=== PATIENT | female | born 1980 | race Caucasian/White ===

== ENCOUNTER 2016-10-11 18:02 | Emergency (ER) | payer OTHER ==
[2016-10-11 18:08] VITALS: BP 141/74
--- NOTE | 2016-10-11 18:15 | UC ---
UC Dental HPI - HPI Summary HPI Summary: 36 YEAR OLD FEMALE PRESENTS WITH COMPLAINS OF RIGHT UPPER DENTAL ABSCESS. - History of Current Complaint Chief Complaint: UCDentalProblem Stated Complaint: DENTAL PAIN Time Seen by Provider: 10/11/16 18:13 Hx Last Menstrual Period: 08/17/16 - Allergies/Home Medications Allergies/Adverse Reactions: Allergies Allergy/AdvReac Type Severity Reaction Status Date / Time Sulfa Drugs Allergy Severe Hives/Diff. Verified 10/11/16 18:08 Breathing/I tching PMH/Surg Hx/FS Hx/Imm Hx - Surgical History Surgical History: Yes Surgery Procedure, Year, and Place: X2, ATTEMPTED CARDIAC ABLATION - Social History Alcohol Use: Occasionally Substance Use Type: None Smoking Status (MU): Light Every Day Tobacco Smoker Type: Cigarettes Amount Used/How Often: 2-3 CIG/DAY Review of Systems Constitutional: Negative Skin: Negative Eyes: Negative ENT: Dental Pain Respiratory: Negative Cardiovascular: Negative Gastrointestinal: Negative Genitourinary: Negative Motor: Negative Neurovascular: Negative Musculoskeletal: Negative Neurological: Negative Psychological: Negative All Other Systems Reviewed And Are Negative: Yes Physical Exam Triage Information Reviewed: Yes Vital Signs: Initial Vital Signs Temp 37.2 C 10/11/16 18:04 Pulse 86 10/11/16 18:04 Resp 16 10/11/16 18:04 BP 141/74 10/11/16 18:04 Pulse Ox 100 10/11/16 18:04 Eye Exam: Normal ENT Exam: Normal Dental: Positive: Abscess @ - RIGHT UPPER DENTAL ABSCESS Neck exam: Normal Neck: Positive: 1 Respiratory Exam: Normal Cardiovascular Exam: Normal Abdominal Exam: Normal Musculoskeletal Exam: Normal Neurological Exam: Normal Psychological Exam: Normal Skin Exam: Normal Dental Complaint Course/Dx - Differential Dx/Diagnosis Provider Diagnoses: RIGHT UPPER DENTAL ABSCESS Discharge - Discharge Plan Condition: Stable Disposition: HOME Prescriptions: Amoxicillin/Clavulanate TAB* [Augmentin TAB 875*] 875 mg PO BID #20 tab Chlorhexidine MW 0.12% 473ML* [Peridex Mouth Wash 0.12%*] 15 ml MT TID PC #30 btl Naproxen [Naprosyn 500 mg] 500 mg PO BID #30 tab Patient Education Materials: Toothache (ED) Referrals: No Primary Care Phys,NOPCP [Medical Doctor] -
== END 2016-10-11 18:19 | disposition home or self-care (01) ==
LOC: UCEAST 18:02
DX: K04.7 Periapical abscess without sinus (principal); Z88.2 Allergy status to sulfonamides; F17.210 Nicotine dependence, cigarettes, uncomplicated
CPT/HCPCS: 99212; G0463

== ENCOUNTER 2017-02-07 01:26 | Emergency (ER) | payer OTHER ==
[2017-02-07 03:29] LABS: Urine Bilirubin Negative (Negative); Urine Glucose Negative (Negative); Urine Nitrite Negative (Negative)
[2017-02-07 04:37] LABS: Hematocrit 38 % (35-47); Hemoglobin 12.8 g/dl (12.0-16.0); Mean Corpuscular HGB Conc 34 g/dl (31-36); Mean Corpuscular Hemoglobin 31 pg (27-31); Mean Corpuscular Volume 93 fL (80-97); Mean Platelet Volume 8 um3 (7.4-10.4); Red Blood Count 4.07 10^6/ul (4.0-5.4); Red Cell Distribution Width 13 % (10.5-15); White Blood Count 9.1 10^3/ul (3.5-10.8)
[2017-02-07 04:57] LABS: ALT 9 U/L (7-52); AST 14 U/L (13-39); Albumin 4.4 g/dL (3.2-5.2); Alkaline Phosphatase 46 U/L (34-104); Anion Gap 6 mmol/L (2-11); BUN/Creatinine Ratio 17.4 (8-20); Blood Urea Nitrogen 15 mg/dL (6-24); CO2 Carbon Dioxide 25 mmol/L (22-32); Chloride 104 mmol/L (101-111); EGFR Non-African American 74.7 (>60); Globulin 2.7 g/dL (2-4); Glucose 96 mg/dL (70-100); Magnesium 1.9 mg/dL (1.9-2.7); Potassium 3.8 mmol/L (3.5-5.0); Sodium 135 mmol/L (133-145); Total Protein 7.1 g/dL (6.4-8.9)
[2017-02-07 04:59] LABS: Troponin I 0.01 ng/mL (<0.04)
--- NOTE | 2017-02-07 06:38 | ED ---
Vasiliy Pelaez Nikita, scribed for Andrea Denny on 02/07/17 at 0319 . Complex/Multi-Sys Presentation - HPI Summary HPI Summary: This patient is a 36 year old F presenting to ED with multiple symptoms since last night. The CC is described as discomfort and strange. The patient rates the pain 3/10 in severity. Symptoms aggravated by nothing. Symptoms alleviated by nothing. Patient reports tingling in bilateral LE and UE, R-sided neck pain, pain in inner thighs and knees bilaterally, dull R-sided CP (intermittent), cough and sneezing (alleviated since onset), SOB, L-sided LAY, and nausea (0000- 0200, intermittent). Pt has an IUD. - History Of Current Complaint Chief Complaint: EDGeneral Time Seen by Provider: 02/07/17 02:53 Hx Obtained From: Patient Onset/Duration: Sudden Onset, Lasting Hours, Still Present Timing: Constant, Hours Severity Currently: Mild Severity Initially: Mild Aggravating Factor(s): nothing Alleviating Factor(s): nothing Associated Signs And Symptoms: Positive: Other - Patient reports tingling in bilateral LE and UE, R-sided neck pain, pain in inner thighs and knees bilaterally, dull R-sided CP (intermittent), cough and sneezing (alleviated since onset), SOB, L-sided LAY, and nausea ([id number], intermittent). - Allergies/Home Medications Allergies/Adverse Reactions: Allergies Allergy/AdvReac Type Severity Reaction Status Date / Time Sulfa Drugs Allergy Severe Hives/Diff. Verified 10/11/16 18:08 Breathing/I tching PMH/Surg Hx/FS Hx/Imm Hx Endocrine/Hematology History: Denies: Hx Diabetes, Hx Thyroid Disease Cardiovascular History: Reports: Other Cardiovascular Problems/Disorders - SVT Denies: Hx Hypertension Respiratory History: Reports: Hx Asthma Denies: Hx Chronic Obstructive Pulmonary Disease (COPD) GI History: Denies: Hx Ulcer - Surgical History Surgery Procedure, Year, and Place: X2, ATTEMPTED CARDIAC ABLATION Infectious Disease History: No Infectious Disease History: Denies: Hx Hepatitis, Hx Human Immunodeficiency Virus (HIV), Traveled Outside the [place] in Last 30 Days - Family History Known Family History: Positive: Cardiac Disease, Hypertension, Diabetes - Social History Alcohol Use: Occasionally Substance Use Type: Reports: None Hx Tobacco Use: Yes Smoking Status (MU): Light Every Day Tobacco Smoker Type: Cigarettes Amount Used/How Often: 2-3 CIG/DAY Review of Systems Positive: Other - sneezing (alleviated since onset) Positive: Chest Pain - dull R-sided CP (intermittent) Positive: Shortness Of Breath, Cough - alleviated since onset Positive: Nausea - [id number], intermittent Positive: Other - R-sided neck pain, pain in inner thighs and knees bilaterally Neurological: Other - tingling in bilateral LE and UE Positive: Headache - L-sided All Other Systems Reviewed And Are Negative: Yes Physical Exam Triage Information Reviewed: Yes Vital Signs On Initial Exam: Initial Vitals Temp Pulse Resp BP Pulse Ox 98.6 F 50 18 110/64 98 02/07/17 01:34 02/07/17 01:34 02/07/17 01:34 02/07/17 01:34 02/07/17 01:34 Vital Signs Reviewed: Yes Appearance: Positive: Well-Appearing, No Pain Distress Skin: Positive: Warm, Skin Color Reflects Adequate Perfusion, Dry Head/Face: Positive: Normal Head/Face Inspection Eyes: Positive: EOMI, DEZ ENT: Positive: Normal ENT inspection Neck: Positive: Supple, Nontender Respiratory/Lung Sounds: Positive: Clear to Auscultation, Breath Sounds Present Cardiovascular: Positive: RRR, Pulses are Symmetrical in both Upper and Lower Extremities Abdomen Description: Positive: Nontender, Soft Bowel Sounds: Positive: Present Musculoskeletal: Positive: Normal, Strength/ROM Intact Neurological: Positive: Normal, Sensory/Motor Intact, Alert, Oriented to Person Place, Time Diagnostics - Vital Signs Vital Signs Temp Pulse Resp BP Pulse Ox 02/07/17 01:34 98.6 F 50 18 110/64 98 - Laboratory Lab Results: Lab Results 02/07/17 02/07/17 02/07/17 Range/Units 03:15 04:25 04:25 WBC 9.1 (3.5-10.8) 10^3/ul RBC 4.07 (4.0-5.4) 10^6/ul Hgb 12.8 (12.0-16.0) g/dl Hct 38 (35-47) % MCV 93 (80-97) fL MCH 31 (27-31) pg MCHC 34 (31-36) g/dl RDW 13 (10.5-15) % Plt Count 218 (150-450) 10^3/ul MPV 8 (7.4-10.4) um3 Neut % (Auto) 55.0 (38-83) % Lymph % (Auto) 33.7 (25-47) % Jasper % (Auto) 7.3 (1-9) % Eos % (Auto) 3.0 (0-6) % Baso % (Auto) 1.0 (0-2) % Absolute Neuts (auto) 5.0 (1.5-7.7) 10^3/ul Absolute Lymphs (auto) 3.1 (1.0-4.8) 10^3/ul Absolute Monos (auto) 0.7 (0-0.8) 10^3/ul Absolute Eos (auto) 0.3 (0-0.6) 10^3/ul Absolute Basos (auto) 0.1 (0-0.2) 10^3/ul Absolute Nucleated RBC 0 10^3/ul Nucleated RBC % 0 D-Dimer, Quantitative (Less Than 230) ng/mL Sodium 135 (133-145) mmol/L Potassium 3.8 (3.5-5.0) mmol/L Chloride 104 (101-111) mmol/L Carbon Dioxide 25 (22-32) mmol/L Anion Gap 6 (2-11) mmol/L BUN 15 (6-24) mg/dL Creatinine 0.86 (0.51-0.95) mg/dL Est GFR ( Amer) 96.0 (>60) Est GFR (Non-Af Amer) 74.7 (>60) BUN/Creatinine Ratio 17.4 (8-20) Glucose 96 (70-100) mg/dL Calcium 9.0 (8.6-10.3) mg/dL Magnesium 1.9 (1.9-2.7) mg/dL Total Bilirubin 0.50 (0.2-1.0) mg/dL AST 14 (13-39) U/L ALT 9 (7-52) U/L Alkaline Phosphatase 46 (34-104) U/L Troponin I 0.01 (<0.04) ng/mL Total Protein 7.1 (6.4-8.9) g/dL Albumin 4.4 (3.2-5.2) g/dL Globulin 2.7 (2-4) g/dL Albumin/Globulin Ratio 1.6 (1-3) Beta HCG, Quant < 0.60 mIU/mL Urine Color Yellow Urine Appearance Cloudy Urine pH 5.0 (5-9) Ur Specific [place] 1.017 (1.010-1.030) Urine Protein Negative (Negative) Urine Ketones Negative (Negative) Urine Blood Negative (Negative) Urine Nitrate Negative (Negative) Urine Bilirubin Negative (Negative) Urine Urobilinogen Negative (Negative) Ur Leukocyte Esterase Negative (Negative) Urine Glucose Negative (Negative) 02/07/17 Range/Units 04:25 WBC (3.5-10.8) 10^3/ul RBC (4.0-5.4) 10^6/ul Hgb (12.0-16.0) g/dl Hct (35-47) % MCV (80-97) fL MCH (27-31) pg MCHC (31-36) g/dl RDW (10.5-15) % Plt Count (150-450) 10^3/ul MPV (7.4-10.4) um3 Neut % (Auto) (38-83) % Lymph % (Auto) (25-47) % Jasper % (Auto) (1-9) % Eos % (Auto) (0-6) % Baso % (Auto) (0-2) % Absolute Neuts (auto) (1.5-7.7) 10^3/ul Absolute Lymphs (auto) (1.0-4.8) 10^3/ul Absolute Monos (auto) (0-0.8) 10^3/ul Absolute Eos (auto) (0-0.6) 10^3/ul Absolute Basos (auto) (0-0.2) 10^3/ul Absolute Nucleated RBC 10^3/ul Nucleated RBC % D-Dimer, Quantitative < 200 (Less Than 230) ng/mL Sodium (133-145) mmol/L Potassium (3.5-5.0) mmol/L Chloride (101-111) mmol/L Carbon Dioxide (22-32) mmol/L Anion Gap (2-11) mmol/L BUN (6-24) mg/dL Creatinine (0.51-0.95) mg/dL Est GFR ( Amer) (>60) Est GFR (Non-Af Amer) (>60) BUN/Creatinine Ratio (8-20) Glucose (70-100) mg/dL Calcium (8.6-10.3) mg/dL Magnesium (1.9-2.7) mg/dL Total Bilirubin (0.2-1.0) mg/dL AST (13-39) U/L ALT (7-52) U/L Alkaline Phosphatase (34-104) U/L Troponin I (<0.04) ng/mL Total Protein (6.4-8.9) g/dL Albumin (3.2-5.2) g/dL Globulin (2-4) g/dL Albumin/Globulin Ratio (1-3) Beta HCG, Quant mIU/mL Urine Color Urine Appearance Urine pH (5-9) Ur Specific [place] (1.010-1.030) Urine Protein (Negative) Urine Ketones (Negative) Urine Blood (Negative) Urine Nitrate (Negative) Urine Bilirubin (Negative) Urine Urobilinogen (Negative) Ur Leukocyte Esterase (Negative) Urine Glucose (Negative) Result Diagrams: 02/07/17 04:25 02/07/17 04:25 Lab Statement: Any lab studies that have been ordered have been reviewed, and results considered in the medical decision making process. - Radiology CXR Radiology Interpretation Completed By: ED Physician - negative - EKG 0317 Cardiac Rate: Bradycardia EKG Rhythm: Sinus Bradycardia - 45 bpm EKG Interpretation: No acute changes Complex Multi-Symp Course/Dx Assessment/Plan: This patient is a 36 year old F presenting to ED with multiple symptoms since last night. Patient reports tingling in bilateral LE and UE, R- sided neck pain, pain in inner thighs and knees bilaterally, dull R-sided CP ( intermittent), cough and sneezing (alleviated since onset), SOB, L-sided LAY, and nausea ([id number], intermittent). EKG reveals sinus bradycardia at 45 bpm and no acute changes. CXR shows negative. Bloodwork/UA obtained. Pt will be discharged with instructions to follow up with PCP. pt refused us of legs and said she will come in the evening - Diagnoses Differential Diagnoses/HQI/PQRI: Cardiac Ischemia, Urinary Tract Infection - pe/ pneumonia/anxeity reaction, Other - dyspnea Provider Diagnoses: Dyspnea Discharge - Discharge Plan Condition: Stable Disposition: HOME Patient Education Materials: Dyspnea (ED) Referrals: Meredith Buck MD [Primary Care Provider] - 3 Days The documentation as recorded by the Vasiliy hernandez Nikita accurately reflects the service I personally performed and the decisions made by Eduin moraes Emmanuel.
[2017-02-07 07:36] VITALS: BP 107/67
--- NOTE | 2017-02-07 08:11 | RAD ---
INDICATION: Chest pain and shortness of breath COMPARISON: Similar chest x-ray dated April 12, 2014 TECHNIQUE: PA and lateral views of the chest were obtained. FINDINGS: The heart and mediastinum are normal in size and contour. The lungs are grossly clear. There is no evidence of large pleural effusion. Visualized bones are normal for the patient's age. There is no radiographic evidence of free air beneath the diaphragm IMPRESSION: No radiographic evidence of acute cardiopulmonary disease.
== END 2017-02-07 06:20 | disposition home or self-care (01) ==
LOC: ED 01:26
DX: R06.00 Dyspnea, unspecified (principal); F17.210 Nicotine dependence, cigarettes, uncomplicated; Z97.5 Presence of (intrauterine) contraceptive device; I47.1 Supraventricular tachycardia; J45.909 Unspecified asthma, uncomplicated; R05 Cough; R06.7 Sneezing; R51 Headache; R11.0 Nausea
CPT/HCPCS: 36415; 71020; 80053; 81003; 83735; 84484; 84702; 85025; 85379; 93005; 99283

== ENCOUNTER 2017-07-05 15:56 | Emergency (ER) | payer OTHER ==
[2017-07-05 16:03] VITALS: BP 112/68
[2017-07-05] MEDS ORDERED: Ibuprofen TAB* 600 MG PO ONE (16:31)
[2017-07-05] MEDS ORDERED: HYDROcodone/ACETAMIN 5-325 MG* 1 TAB PO ONE (16:31)
--- NOTE | 2017-07-05 17:22 | RAD ---
Indication: Neck pain. CT of the cervical spine was obtained in the axial plane. Sagittal and coronal reconstructed images were obtained. The skull base demonstrates no fracture. Mastoid air cells are well aerated. The C1 ring is intact with no evidence of fracture. The vertebral bodies appear normal in height and alignment. There is straightening of the normal lordosis. At C2-C3, C3-C4, C4-C5, C5-C6, C6-C7 and C7-T1 the disc space appears unremarkable. The lung apices are unremarkable. Spinal canal appears to be intact. IMPRESSION: No fracture of the cervical spine is noted.
--- NOTE | 2017-07-05 17:24 | RAD ---
Indication: Back pain. CT of the thoracic spine was obtained in the axial plane. Sagittal and coronal reconstructed images were obtained. The vertebral bodies appear normal in height. No compression fracture is noted. No evidence of spinal Canal masses are noted. No other bone or joint abnormality is noted. The visualized lung de [place] ve[place] are unremarkable. IMPRESSION: No fracture of the thoracic spine is noted.
--- NOTE | 2017-07-05 18:03 | UC ---
Chicho Pelaez Gabriel, scribed for Joe Haque MD on 07/05/17 at 1622 . Back Pain HPI - HPI Summary HPI Summary: This patient is a 37 year old F [place] [facility] [place] a chief complaint of neck and back pain that began at 0930 this morning while she was walking into work. The patient rates the pain 10/10 in severity and states it is located in the middle of her back, paraspinally. Symptoms aggravated by movement. Symptoms alleviated by lying. Patient reports neck stiffness, trouble walking secondary to pain, and numbness in UEs. Patient denies lower back pain, SOB, CP, fever, chills, and incontinence. She states her back has been sore for the past two days but got worse today. She attempted to take muscle relaxers given to her for neck pain and a LAY 10 days ago. She states she had a similar pain years ago that resolved. - History of Current Complaint Chief Complaint: UCBackPain Stated Complaint: BACK PAIN Hx Obtained From: Patient Hx Last Menstrual Period: 05/12/17 Onset/Duration: Lasting Hours, Still Present Timing: Constant Severity Initially: Severe Severity Currently: Severe Pain Intensity: 10 Pain Scale Used: 0-10 Numeric Back Pain: Is Discrete @ - mid Aggravating Factor(s): Movement Alleviating Factor(s): Other - lying Associated Signs And Symptoms: Positive: Negative - lower back pain, SOB, CP, fever, chills, incontinence,, Other - neck stiffness, trouble walking secondary to pain, numbness in UEs, - Allergies/Home Medications Allergies/Adverse Reactions: Allergies Allergy/AdvReac Type Severity Reaction Status Date / Time MS Sulfa Drugs [Sulfa Drugs] Allergy Severe Hives/Diff. Verified 07/05/17 16:02 Breathing/I tching Home Medications: Home Medications Methocarbamol TAB* [Robaxin 500 MG TAB*] 500 mg PO PRN 07/05/17 [History] PMH/Surg Hx/FS Hx/Imm Hx Respiratory History: Asthma - Surgical History Surgical History: Yes Surgery Procedure, Year, and Place: X2, ATTEMPTED CARDIAC ABLATION - Family History Known Family History: Positive: Cardiac Disease, Hypertension, Diabetes - Social History Lives: With Family Alcohol Use: Occasionally Substance Use Type: None Smoking Status (MU): Former Smoker Type: Cigarettes Amount Used/How Often: 2-3 CIG/DAY Review of Systems Constitutional: Negative - fever Musculoskeletal: Other: - mid back pain, neck stiffness, trouble walking secondary to pain Neurological: Numbness - in arms All Other Systems Reviewed And Are Negative: Yes Physical Exam - Summary Physical Exam Summary: General: well-appearing, no pain distress Skin: warm, color reflects adequate perfusion, dry Head: normal Eyes: EOMI, DEZ ENT: normal Neck: supple, nontender Respiratory: CTA, breath sounds present Cardiovascular: RRR Abdomen: soft, nontender Bowel: present, negative incontinence Musculoskeletal: normal, strength/ROM intact, Arms are at full strength Neurological: normal, sensory/motor intact, A&O x3 Psychological: affect/mood appropriate Triage Information Reviewed: Yes Vital Signs: Initial Vital Signs Temp 98.6 F 07/05/17 15:57 Pulse 60 07/05/17 15:57 Resp 18 07/05/17 15:57 BP 112/68 07/05/17 15:57 Pulse Ox 99 07/05/17 15:57 Vital Signs Reviewed: Yes Diagnostics - Radiology CT C-spine Radiology Interpretation Completed By: Radiologist - No fracture of the cervical spine is noted. Dr. Haque has reviewed this report. CT L-spine Radiology Interpretation Completed By: Radiologist - No fracture of the thoracic spine is noted. Dr. Haque has reviewed this report. Back Pain Course/Dx - Course Course Of Treatment: DISCUSSED RESULTS WITH PATIENT. NO NEUROLOGIC DEFICIT. IMPROVED IN CLINIC. F/U PMD; RE EVAL SOONER IF WORSE. - Differential Dx/Diagnosis Provider Diagnoses: THORACIC AND CERVICAL PAIN Discharge - Sign-Out/Discharge Documenting (check all that apply): Discharge/Admit/Transfer - Discharge Plan Condition: Stable Disposition: HOME Prescriptions: Cyclobenzaprine TAB* [Flexeril 10 MG TAB*] 10 mg PO TID PRN #15 tab MDD 3 PRN Reason: Pain HYDROcodone/ACETAMIN 5-325 MG* [Denio 5-325 TAB*] 1 tab PO Q4H PRN #20 tab MDD 6 PRN Reason: Pain Ibuprofen TAB* [Motrin TAB* 600 MG] 600 mg PO Q6H PRN #20 tab PRN Reason: Pain Patient Education Materials: Back Pain (ED), Acute Neck Pain (ED) Forms: *Work Release Referrals: Meredith Buck MD [Primary Care Provider] - Additional Instructions: FOLLOW UP WITH YOUR DOCTOR. GET RECHECKED FOR ANY WORSENING OF YOUR CONDITION OR QUESTIONS OR CONCERNS. - Billing Disposition and Condition Condition: STABLE Disposition: HOME The documentation as recorded by the Chicho hernandez Gabriel accurately reflects the service I personally performed and the decisions made by me, Joe Haque MD.
== END 2017-07-05 18:10 | disposition home or self-care (01) ==
LOC: UCEAST 15:56
DX: M54.2 Cervicalgia (principal); M54.6 Pain in thoracic spine; Z87.891 Personal history of nicotine dependence; Z88.2 Allergy status to sulfonamides
CPT/HCPCS: 72125; 72128; 99212; A9270-GY; G0463

== ENCOUNTER 2019-04-10 16:02 | Emergency (ER) | payer OTHER ==
[2019-04-10 16:35] VITALS: BP 108/67
--- NOTE | 2019-04-10 17:23 | UC ---
Lower Extremity/Ankle HPI - HPI Summary HPI Summary: 38-year-old woman comes in with chief complaint of sudden onset of left calf pain. Started a little more than hour ago. No known trauma. Pain is in the upper calf. Has no loss of sensation or decrease in strength. Patient is not a smoker. She has no history is of DVTs. No family history of DVTs. She has a Mirena but is not on oral estrogens. No recent long distance travel. She is a former smoker. Pain is worse with palpation and ambulation. Patient's primary concern is whether or not she has a DVT. No chest pain. No shortness of breath. - History of Current Complaint Chief Complaint: UCLowerExtremity Stated Complaint: GENERAL LEG PAIN Time Seen by Provider: 04/10/19 16:52 Hx Last Menstrual Period: iud Pain Intensity: 7 - Allergies/Home Medications Allergies/Adverse Reactions: Allergies Allergy/AdvReac Type Severity Reaction Status Date / Time Sulfa (Sulfonamide Allergy Hives/Diff. Verified 04/10/19 16:35 Antibiotics) Breathing/I tching Home Medications: Home Medications NK [No Home Medications Reported] 04/10/19 [History Confirmed 04/10/19] PMH/Surg Hx/FS Hx/Imm Hx Previously Healthy: Yes - Surgical History Surgical History: Yes Surgery Procedure, Year, and Place: X2, ATTEMPTED CARDIAC ABLATION - Family History Known Family History: Positive: Cardiac Disease, Hypertension, Diabetes - Social History Alcohol Use: Occasionally Substance Use Type: None Smoking Status (MU): Former Smoker Type: Cigarettes Amount Used/How Often: 2-3 CIG/DAY Review of Systems All Other Systems Reviewed And Are Negative: Yes Constitutional: Positive: Negative Skin: Positive: Negative Eyes: Positive: Negative ENT: Positive: Negative Respiratory: Positive: Negative Cardiovascular: Positive: Negative Gastrointestinal: Positive: Negative Motor: Positive: Negative Neurovascular: Positive: Negative Musculoskeletal: Positive: Other: - SEE HPI Neurological: Positive: Negative Psychological: Positive: Negative Is Patient Immunocompromised?: No Physical Exam Triage Information Reviewed: Yes Appearance: Well-Appearing, No Pain Distress, Well-Nourished Vital Signs: Initial Vital Signs Temp 96.6 F 04/10/19 16:31 Pulse 57 04/10/19 16:31 Resp 18 04/10/19 16:31 BP 108/67 04/10/19 16:31 Pulse Ox 100 04/10/19 16:31 Vital Signs Reviewed: Yes Eye Exam: Normal Eyes: Positive: Conjunctiva Clear Neck: Positive: Supple Respiratory: Positive: Lungs clear, Normal breath sounds, No respiratory distress Cardiovascular: Positive: RRR Musculoskeletal: Positive: Other: - Patient has tenderness to palpation the left calf. No popliteal tenderness knee is nonswollen and nontender full range of motion. Patient has full range of motion full-strength in the knee and the ankle joint. Neurological: Positive: Alert, Muscle Tone Normal Psychological: Positive: Age Appropriate Behavior Skin Exam: Normal Lower Extremity Course/Dx - Course Course Of Treatment: Center Line Cutter Operator: Tomasz Brock ([id number]) Robotic Welding Operator: CHAO (NUANCE) Report Date: 04/10/2019 18:10:00 Report Status: Final Start of Report Content Patient Name: EMILIANO CONWAY Medical Record#: [id number] Ordering Physician: Joe Haque MD Acct.#: [id number] : Age: 38 Sex: F Location: [facility] Exam Date: 04/10/19 165 ADM Status: REG ER Order Information: VL LOWER EXT VEINS LEFT Accession Number: [id number] CPT: 77444 INDICATION: Calf pain COMPARISON: There are no relevant prior studies available for comparison. TECHNIQUE: Multiple real-time, color flow and Doppler tracings of the left lower extremity were obtained. FINDINGS: The common femoral, femoral, profunda femoral and popliteal veins all demonstrate normal compressibility, augmentation with compression and phasic response with respiration. The posterior tibial and peroneal veins demonstrate normal compressibility and augmentation with compression. IMPRESSION: NO EVIDENCE FOR DEEP VENOUS THROMBOSIS. <Electronically signed by Tomasz Brock MD in OV> 04/10/191805 Dictated By: Tomasz Brock MD Dictated Date/Time: 04/10/191804 Transcribed Date/Time: 04/10/191804 Copy to: CC:Meredith Buck MD; Joe Haque MD Imaging - [facility] Imaging - [facility] Imaging - [facility] [address] [facility] [address] [place], [place] [id number] [place] [id number] [place] [id number] ph [phone] ph ([phone]) ph ([phone]) End of Report Content I discussed the venous Doppler results with the patient. No DVT was found. Plan will be ibuprofen and rest and follow-up with her primary care doctor as needed. If the pain continues or worsens is any swelling or redness patient is to get reevaluated again. I let the patient know that there is potential to have to re-ultrasound if not improved or worsened. - Differential Dx/Diagnosis Provider Diagnosis: Pain of left calf Discharge ED - Sign-Out/Discharge Documenting (check all that apply): Patient Departure All imaging exams completed and their final reports reviewed: Yes - Discharge Plan Condition: Stable Disposition: HOME Patient Education Materials: Deep Vein Thrombosis (ED), Leg Pain (ED) Referrals: Meredith Buck MD [Primary Care Provider] - Additional Instructions: FOLLOW UP WITH YOUR DOCTOR IF NOT COMPLETELY IMPROVED. If the calf pain does not improve or you get any swelling or redness you should get reevaluated. GET REEVALUATED SOONER IF NOT IMPROVED OR WORSE OR ANY QUESTIONS OR CONCERNS. - Billing Disposition and Condition Condition: STABLE Disposition: Home
== END 2019-04-10 18:20 | disposition home or self-care (01) ==
LOC: UCEAST 16:02
DX: M79.605 Pain in left leg (principal); Z88.2 Allergy status to sulfonamides; Z87.891 Personal history of nicotine dependence
CPT/HCPCS: 99211; G0463

== ENCOUNTER 2019-05-29 08:26 | Emergency (ER) | payer OTHER ==
--- OUTSIDE RECORDS SUMMARY | 2019-05-29 08:32 | XMS REPORT | Summary of Care ---
:1980 Author Organization [facility] Address [address] [place] [address] Care Team Providers Name Role Phone Meredith Buck MD Primary Care Provider Reason for Referral MRI/CAT/PET Scan (Routine) Status Reason Specialty Diagnoses / Procedures Referred By Referred To Contact Contact Authorized Diagnoses Hypertrophic cardiomyopathy (HCC) [place], Procedures MR HEART CARDIOMYOPATHY (CHF EVAL) MD Marcial [facility] [place] [id number] Reason for Visit Reason Comments Follow Up Pt presents for 6 month f/u. Encounter Details Date Type Department Care Team Description 04/18/2019 Office Visit Rivera Normangeeemery Burgos, Hypertrophic cardiomyopathy (HCC) (Primary Dx); Cardiology MD Marcial SVT (supraventricular tachycardia) (HCC) [address] [facility] [address] [place], [place] [id number] [place] [address] [phone] Allergies Active Allergy Reactions Severity Noted Date Comments Sulfa Antibiotics Anaphylaxis 11/03/2017 documented as of this encounter (statuses as of 04/18/2019) Medications Medication Sig Dispensed Refills Start Date End Date Status Levonorgestrel by Intrauterine 0 Active (MIRENA, 52 MG,) 20 route. MCG/24HR Intrauterine IUD albuterol HFA Take 2 Puffs by 0 Active (VENTOLIN) 108 (90 inhalation EVERY Base) MCG/ACT FOUR HOURS Inhalation Aero Soln NEEDED. documented as of this encounter (statuses as of 04/18/2019) Active Problems Problem Noted Date Family history of hypertrophic cardiomyopathy 11/03/2017 SVT (supraventricular tachycardia) 11/03/2017 Mild asthma 11/03/2017 documented as of this encounter (statuses as of 04/18/2019) Social History Tobacco Use Types Packs/Day Years Used Date Former Smoker Cigarettes 0.25 20 Smokeless Tobacco: Never Used Alcohol Use Drinks/Week oz/Week Comments Yes About 4-6 drinks per week Sex Assigned at Date Recorded Not on file Job Start Date Occupation Industry Not on file Not on file Not on file Travel History Travel Start Travel End No recent travel history available. documented as of this encounter Last Filed Vital Signs Vital Sign Reading Time Taken Comments Blood Pressure 104/66 04/18/2019 10:11 AM EST Pulse 68 04/18/2019 10:11 AM EST Temperature - - Respiratory Rate - - Oxygen Saturation - - Inhaled Oxygen Concentration - - Weight 85.7 kg (189 lb) 04/18/2019 10:11 AM EST Height 175.3 cm (5' 9") 04/18/2019 10:11 AM EST Body Mass Index 27.91 04/18/2019 10:11 AM EST documented in this encounter Patient Instructions Patient InstructionsMcMarcial Sousa MD - 04/18/2019 10:00 AM EST No new medications today. No exercise restrictions. Get your bloodwork checked today. Schedule a cardiac MRI in [place] sometime in the next month or two. Wear a 24 hour Holter monitor. Follow up with me in 6 months or sooner if needed. documented in this encounter Progress Notes Marcial Burgos MD - 04/18/2019 10:00 AM EST [facility] Patient: Rae Galvez Date of : 1980 Date of Service: 04/18/2019 REFERRING PRACTITIONER: Self-Referred PRIMARY CARE PROVIDER: Meredith Buck Chief Complaint: Chief Complaint Patient presents with Follow Up Pt presents for 6 month f/u. History of Present Illness: We had the pleasure of seeing Rae Galvez today at the [facility]. She is a 39-y.o. female with a family history of hypertrophic cardiomyopathy (mother in her 40s of SCD attributed to HCM). 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 She also has asthma, prior tobacco abuse, and a history of SVT s/p attempted ablation in [place] with failure to induce the rhythm at that time. Ms. Galvez returns to cardiology clinic today for routine f/u. Since her last visit with me in October she was seen by genetics at [facility] and underwent testing. 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 Geneticcounseling was provided to the patient over the phone after her test results were in, and they had recommended that she follow up with me for further evaluation. From a symptom standpoint, she reports feeling "OK." Now that she knows her genetic test results she's more hyper-aware of any symptoms, and she does have some intermittent palpitations at times. When she gets the palpitations they usually last only a few seconds and she denies lightheadedness or syncope. She does sometimes get chest pains that either feel like a tightness or a "twinge." None of her CP sxs are related to exertion and her breathing has been fairly good. She's been doing some regular exercise such as 20 minutes on the treadmill and Cross[employer] and feels pretty good with activity. No exertional lightheadedness. No orthopnea, paroxysmal dyspnea, or lower extremity edema. Patient Active Problem List Diagnosis Family history of hypertrophic cardiomyopathy SVT (supraventricular tachycardia) (HCC) Mild asthma Past Medical History: Diagnosis Date Family history of hypertrophic cardiomyopathy 11/03/2017 Mild asthma 11/03/2017 SVT (supraventricular tachycardia) (HCC) 11/03/2017 History reviewed. No pertinent surgical history. Allergies Allergen Reactions Sulfa Antibiotics Anaphylaxis Current Outpatient Medications Medication Sig albuterol HFA (VENTOLIN) 108 (90 Base) MCG/ACT Inhalation Aero Soln Take 2 Puffs by inhalation EVERY FOUR HOURS NEEDED. Levonorgestrel (MIRENA, 52 MG,) 20 MCG/24HR Intrauterine IUD by Intrauterine route. No current facility-administered medications for this visit. Family History Problem Relation Age of Onset Heart Mother 40 Sudden cardiac attributed to HCM Heart Brother 36 Possible HCM Heart Daughter "Leaky valve" Social History Socioeconomic History Marital status: Single Spouse name: Not on file Number of children: Not on file Years of education: Not on file Highest education level: Not on file Occupational History Not on file Social Needs Financial resource strain: Not on file Food insecurity Worry: Not on file Inability: Not on file Transportation needs Medical: Not on file Non-medical: Not on file Tobacco Use Smoking status: Former Smoker Packs/day: 0.25 Years: 20.00 Pack years: 5.00 Types: Cigarettes Smokeless tobacco: Never Used Substance and Sexual Activity Alcohol use: Yes Comment: About 4-6 drinks per week Drug use: No Sexual activity: Not on file Lifestyle Physical activity Days per week: Not on file Minutes per session: Not on file Stress: Not on file Relationships Social connections Talks on phone: Not on file Gets together: Not on file Attends druze service: Not on file Active member of club or organization: Not on file Attends meetings of clubs or organizations: Not on file Relationship status: Not on file Intimate partner violence Fear of current or ex partner: Not on file Emotionally abused: Not on file Physically abused: Not on file Forced sexual activity: Not on file Other Topics Concern Not on file Social History Narrative Not on file Review of Systems - Negative except as noted in HPI. Physical Exam: Vitals: 04/18/19 1011 BP: 104/66 Pulse: 68 Weight: 189 lb (85.7 kg) Height: 5' 9" (1.753 m) Body mass index is 27.91 kg/m. General: Well nourished, alert 39-y.o. female in NAD HEENT: anicteric, MMM, no E/E OP, conj pink Neck: JVP approx 4-5 cm above RA, no carotid bruits or LAD CV: Regular and stan, normal s1/s2, 1-2/6 KAREN at RUSB similar to prior, with no worsening of murmurwith Valsalva. Pulm: CTA bilaterally without wheezes, rhonchi, or rales. No increased work of breathing. Abd: soft, NT, ND, +BS. No appreciable pulsatile masses or bruits. Ext: no lower extremity edema, no cyanosis, no cords, redness, or warmth, 2+ distal pulses Neuro: no gross focal deficits Skin: no visible lesions Labs: No results found for: NA, K, CL, CO2, GLUCOSE, BUN, CREATININE, CALCIUM, TP, ALBUMIN, AST, ALT, ALK,TBILI, EGFR No results found for: BNP No results found for: CHOL, TRIG, HDL, LDL, LDLHDLRATIO, CHOLHDLRATIO Cardiac Studies: EKG Today (I personally reviewed): Sinus stan in 50s. Otherwise normal EKG. 30 Day Event Monitor 12/14/17: CONCLUSIONS: 1. 30-day Event monitor is within normal limits. 2. No cardiac rhythm explanation for the patient's reported symptomatic events on 11/12/2017. TTE at [facility] 10/21/17: Assessment & Plan: Rae Galvez is a 39-y.o. female with a family history of hypertrophic cardiomyopathy (mother in her 40s of SCD attributed to HCM). 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 She also has asthma, prior tobacco abuse, and a history of SVT s/p attempted ablation in [place] with failure to induce the rhythm at that time. ICD-9-CM ICD-10-CM 1. Hypertrophic cardiomyopathy (HCC) 425.18 I42.2 AMBULATORY 12 LEAD EKG (GLOBAL ) MR HEART CARDIOMYOPATHY (CHF EVAL) COMPREHENSIVE METABOLIC PANEL CBC NO DIFFERENTIAL HOLTER MONITOR 24-48 HOURS CBC NO DIFFERENTIAL COMPREHENSIVE METABOLIC PANEL 2. SVT (supraventricular tachycardia) ([facility]) 427.89 I47.1 1. HCM: Workup to date has not revealed any phenotypic expression of HCM, although we now know that she is positive for a pathogenic gene mutation and her surveillance testing should be more frequent and complete. I had a long discussion with her today regarding the fact that she does have a fairly high likelihood of some gene expression over her lifetime, but that there is variable expression and it may never get to a point where she requires an ICD like her brother. I have ordered a cMRI to look at both her wall thickness as well as to see if she has evidence of LGE. If the MRI looks normal then I'll plan to do yearly echoes and periodic MRIs every few years. I'm checking some basic labs today prior to her MRI and will have the results forwarded to Dr. Buck as well. I've ordered a 24 hour Holter to evaluate for ventricular ectopy/VT. We' ll plan to do one of these yearly. I had a discussion about the fact that her daughters carry a 50% risk of being positive for thegene mutation. They are actually getting genetic testing at [facility] next week and she plans to have them see me in the office for further evaluation after we know the results of their genetic testing. No exercise restrictions at this time. 2. Palpitations/History of SVT/Sinus Bradycardia: No concerning findings on her prior 30 day event monitor and her dyspnea has improved some with doing more exercise. She's noted that her HR does go up appropriately with exercise. No further testing is needed at this time beyond what we're pursuing for the HCM. Most likely her significant sinus stan is due to a high vagal tone. Thank you for allowing me to participate in the care of Rae Galvez. We will plan on f/u in our office in 6 months or sooner prn. If you have any questions or concerns please feel free to call our office at . Marcial Burgos MD, 04/18/2019, 12:13 This note was created using my previous note as a template; changes were made where appropriate, andall information in the current note is up to date to the best of my knowledge.Electronically signed by Marcial Burgos MD at 2019 12:40 PM ESTdocumented in this encounter Plan of Treatment Date Type Specialty Care Team Description 10/17/2019 Office Visit Cardiology Marcial Burgos MD [address] [place] [address] [phone] Name Type Priority Associated Diagnoses Date/Time COMPREHENSIVE METABOLIC Lab Routine Hypertrophic 04/18/2019 10:57 AM PANEL cardiomyopathy (HCC) EST CBC NO DIFFERENTIAL Lab Routine Hypertrophic 04/18/2019 10:57 AM cardiomyopathy (HCC) EST Name Type Priority Associated Diagnoses Order Schedule AMBULATORY 12 LEAD EKG EKG Routine Hypertrophic Ordered: (GLOBAL) cardiomyopathy ([facility]) 04/18/2019 MR HEART CARDIOMYOPATHY Imaging Routine Hypertrophic Expected: (CHF EVAL) cardiomyopathy ([facility]) 04/18/2019 (Approximate), Expires: 04/17/2020 COMPREHENSIVE METABOLIC Lab Routine Hypertrophic Expected: PANEL cardiomyopathy (HCC) 04/18/2019 (Approximate), Expires: 04/18/2020 CBC NO DIFFERENTIAL Lab Routine Hypertrophic Expected: cardiomyopathy ([facility]) 04/18/2019 (Approximate), Expires: 10/15/2019 HOLTER MONITOR 24-48 EKG Routine Hypertrophic Expected: HOURS cardiomyopathy ([facility]) 04/18/2019, Expires: 05/22/2020 Health Maintenance Due Date Last Done Comments PNEUMOCOCCAL 0-64 YRS (1 of 1 - 1986 PPSV23) DTaP/Tdap/Td Vaccines (1 - Tdap) 1991 DEPRESSION SCREENING 1992 HIV SCREENING 1995 PAP SMEAR 2001 INFLUENZA VACCINE (#1) 2018 HEPATITIS A IMMUNIZATION SERIES Aged Out No longer eligible based on patient's age to complete this topic HPV IMMUNIZATION SERIES Aged Out No longer eligible based on patient's age to complete this topic MENINGOCOCCAL VACCINE IMM Aged Out No longer eligible based on patient's age to complete this topic documented as of this encounter Results Not on filedocumented in this encounter Visit Diagnoses Diagnosis Hypertrophic cardiomyopathy (HCC) Other hypertrophic cardiomyopathy SVT (supraventricular tachycardia) (HCC) Other specified cardiac dysrhythmias documented in this encounter Insurance Payer Benefit Plan / Subscriber ID Effective Dates Phone Address Type Group [employer] [place] [facility] xxxxxxxxxx 2013-Present [employer] documented as of this encounter
[2019-05-29 08:40] VITALS: BP 98/65
[2019-05-29] MEDS ORDERED: Ipratropium 0.5MG/2.5ML NEB* 0.5 MG/2.5 ML NEB.SOLN INH ONE (09:07)
[2019-05-29] MEDS ORDERED: Albuterol 2.5 MG/3 ML NEB.SOL* (0.083%) INH ONE (09:07)
--- NOTE | 2019-05-29 09:14 | UC ---
Respiratory Complaint HPI - HPI Summary HPI Summary: The patient is a 39-year-old female who has a workplace exposure to someone currently being isolated pending the results of their Carona test. She has a history of asthma and has had a 2-3 day history of nasal congestion and cough. She has had wheezing. She states that she has been using her rescue inhaler with little relief. She denies any myalgias however she does have a headache. She denies any chest pain. She has felt dyspneic at times. - History of Current Complaint Chief Complaint: UCRespiratory Stated Complaint: CHEST CONGESTION,RUNNY NOSE,ASTHMA EXACERBATION Time Seen by Provider: 05/29/19 08:41 Hx Obtained From: Patient Hx Last Menstrual Period: Mirena Onset/Duration: Gradual Onset, Lasting Days Timing: Constant Severity Initially: Mild Severity Currently: Moderate Pain Intensity: 0 Pain Scale Used: 0-10 Numeric Character: Cough: Productive Aggravating Factors: Exertion, Deep Breaths Associated Signs And Symptoms: Positive: Wheezing, Nasal Congestion Related History: Seasonal Allergies - Allergies/Home Medications Allergies/Adverse Reactions: Allergies Allergy/AdvReac Type Severity Reaction Status Date / Time Sulfa (Sulfonamide Allergy Hives/Diff. Verified 05/29/19 08:40 Antibiotics) Breathing/I tching Home Medications: Home Medications Albuterol 2.5MG/3ML (0.083%)* [Ventolin 2.5 MG/3 ML NEB.BLAIR*] 2.5 mg INH QID PRN #1 neb.blair 05/29/19 [Rx] PMH/Surg Hx/FS Hx/Imm Hx Previously Healthy: Yes Respiratory History: Asthma, Bronchitis - Surgical History Surgical History: Yes Surgery Procedure, Year, and Place: X2, ATTEMPTED CARDIAC ABLATION - Family History Known Family History: Positive: Cardiac Disease, Hypertension, Diabetes, Respiratory Disease - Social History Alcohol Use: Occasionally Substance Use Type: None Smoking Status (MU): Former Smoker Type: Cigarettes Amount Used/How Often: 2-3 CIG/DAY Review of Systems All Other Systems Reviewed And Are Negative: Yes Constitutional: Positive: Negative Skin: Positive: Negative Eyes: Positive: Negative ENT: Positive: Nasal Discharge, Sinus Congestion Respiratory: Positive: Shortness Of Breath - at times, Cough, Other - wheezing Cardiovascular: Positive: Negative Gastrointestinal: Positive: Negative Genitourinary: Positive: Negative Motor: Positive: Negative Neurovascular: Positive: Negative Musculoskeletal: Positive: Negative Neurological/Mental Status: Positive: Negative Psychological: Positive: Negative Physical Exam Triage Information Reviewed: Yes Appearance: Well-Appearing, No Pain Distress, Well-Nourished Vital Signs: Initial Vital Signs Temp 97.2 F 05/29/19 08:32 Pulse 79 05/29/19 08:32 Resp 18 05/29/19 08:32 BP 98/65 05/29/19 08:32 Pulse Ox 98 05/29/19 08:32 Vital Signs Reviewed: Yes Eyes: Positive: Conjunctiva Clear ENT: Positive: Hearing grossly normal, Pharynx normal, Nasal congestion, Nasal drainage, TMs normal, Uvula midline. Negative: Tonsillar swelling, Tonsillar exudate, Trismus, Muffled voice, Hoarse voice Neck: Positive: Supple, Nontender, No Lymphadenopathy Respiratory: Positive: No respiratory distress, No accessory muscle use, Wheezing - with forced expiration Cardiovascular: Positive: RRR, No Murmur, Pulses Normal Musculoskeletal: Positive: ROM Intact, No Edema Neurological: Positive: Alert Psychological Exam: Normal Skin Exam: Normal Diagnostics - Laboratory Lab Results: RSV - influenza - Re-Evaluation - Re-Evaluation First Eval Re-Evaluation Time: 10:14 Change: Improved - subjectively Respiratory Course/Dx - Differential Dx/Diagnosis Provider Diagnosis: Viral URI with cough Discharge ED - Sign-Out/Discharge Documenting (check all that apply): Patient Departure All imaging exams completed and their final reports reviewed: No Studies - Discharge Plan Condition: Stable Disposition: HOME Prescriptions: Albuterol 2.5MG/3ML (0.083%)* [Ventolin 2.5 MG/3 ML NEB.BLAIR*] 2.5 mg INH QID PRN #1 neb.blair PRN Reason: Wheezing Patient Education Materials: Viral Syndrome (ED) Referrals: Meredith Buck MD [Primary Care Provider] - If Needed Additional Instructions: TO ER for new or worsening symptoms use nebulizer as directed Your COVID-19 test is pending See In-home Isolation sheet [facility] will be in contact with you testing may take 2-6 days for results - Billing Disposition and Condition Condition: STABLE Disposition: Home
[2019-05-29 09:42] LABS: Influenza A Molecular Negative (Negative); Influenza B Molecular Negative (Negative)
== END 2019-05-29 10:35 | disposition home or self-care (01) ==
LOC: UCEAST 08:26
DX: Z03.818 Encounter for observation for suspected exposure to other biological agents ruled out (principal); J06.9 Acute upper respiratory infection, unspecified; R05 Cough; J45.909 Unspecified asthma, uncomplicated; Z87.891 Personal history of nicotine dependence; Z88.2 Allergy status to sulfonamides
CPT/HCPCS: 99213; G0463; U0002